=== PATIENT | female | born 1945 | race Caucasian/White ===

== ENCOUNTER 2016-09-26 09:14 | Outpatient (CLI) | payer MEDICARE, OTHER | END 2016-09-26 09:15 | disposition home or self-care (01) | DX: Z53.9 Procedure and treatment not carried out, unspecified reason (principal); R10.2 Pelvic and perineal pain; M46.1 Sacroiliitis, not elsewhere classified; E55.9 Vitamin D deficiency, unspecified; R53.81 Other malaise ==

== ENCOUNTER 2018-06-02 11:18 | Outpatient (CLI) | payer MEDICARE, OTHER ==
[2018-06-02] MEDS ORDERED: IOPAMIDOL-300 100 ML VIAL ONE (11:59)
[2018-06-02 12:12] LABS: CREATININE 0.8 mg/dL (0.4-1.0)
[2018-06-02] MEDS ORDERED: IOPAMIDOL-300 100 ML VIAL IVP ONE (14:59)
--- NOTE | 2018-06-03 08:58 | CT Report ---
Reason: CHRONIC SINUSITIS, UNSPECIFIED Procedure Date: 06/02/2018 Accession Number: [id number] / [id number] Procedure: CT - Neck Soft Tissue W/ CPT Code: FULL RESULT: EXAM: CT SOFT TISSUE NECK WITH CONTRAST. EXAM DATE: 06/02/2018 01:33 PM. HISTORY: Chronic sinusitis. COMPARISONS: SINUSES 06/02/2018. TECHNIQUE: Routine soft tissue neck CT protocol. Reconstructions: Coronal and sagittal. IV contrast: ISOVUE 300 100mL. In accordance with CT protocol optimization, one or more of the following dose reduction techniques were utilized for this exam: automated exposure control, adjustment of mA and/or KV based on patient size, or use of iterative reconstructive technique. Findings: Relevant images are indicated (image number, series number). Limited evaluation intracranial contents unremarkable, basal cisterns are patent. Orbital contents negative. Paranasal sinuses and mastoid air cells appear clear. Dentition appears intact. Suprahyoid neck: There is no suspicious mass or fluid collection. Oral cavity appears unremarkable, partly degraded by dental artifact. Asymmetrically prominently mildly enlarged right internal jugular chain nodes are present (49, 2). Partial fatty replaced right submandibular gland. Bilateral salivary glands otherwise unremarkable. Airway patent. Infrahyoid neck: No suspicious mass, fluid collection, no suspicious adenopathy. Thyroid atrophy. Larynx unremarkable, airway patent. Limited evaluation upper lung casas are clear. Advanced multilevel cervical spondylosis worse at the C5-C6, C6-C7 levels. Impressions: 1. Mildly prominent right suprahyoid internal jugular chain nodes without necrotic appearing morphology. Could represent normal variant. Soft tissue neck otherwise unremarkable with no suspicious mass, fluid collection, otherwise no suspicious adenopathy. 2. Advanced multilevel cervical spondylosis. RADIA
--- NOTE | 2018-06-03 09:35 | CT Report ---
Reason: CHRONIC SINUSITIS, UNSPECIFIED Procedure Date: 06/02/2018 Accession Number: [id number] / [id number] Procedure: CT - Sinuses CPT Code: FULL RESULT: EXAM: CT SINUS EXAM DATE: 06/02/2018 01:33 PM. HISTORY: Chronic sinusitis. COMPARISONS: None. TECHNIQUE: Routine multi-axial CT imaging performed through the sinuses. Iodinated IV contrast: None. Reconstructions: Coronal. In accordance with CT protocol optimization, one or more of the following dose reduction techniques were utilized for this exam: automated exposure control, adjustment of mA and/or KV based on patient size, or use of iterative reconstructive technique. FINDINGS: Mild bilateral maxillary sinus mucosal thickening but no obstruction or air-fluid level. Minimal bilateral ethmoid sinus and sphenoid sinus mucosal thickening without opacification. Clear hypoplastic left frontal sinus. Clear nonobstructed small right frontal sinus. Patent ostiomeatal units. Mild nasal septal bowing to the left of midline. No obstructive nasal passage soft tissue mass. Grossly clear temporal bone airspaces bilaterally. No acute fracture or focal bone destruction. IMPRESSION: Minimal to mild sphenoid, ethmoid and bilateral maxillary sinus mucosal thickening. No sinus obstruction, complete opacification or air-fluid level. RADIA
== END 2018-06-02 11:19 | disposition home or self-care (01) ==
LOC: LAB 11:18
PROVIDERS: ATTEND Internal Medicine
DX: R22.0 Localized swelling, mass and lump, head (principal); R22.1 Localized swelling, mass and lump, neck; J32.9 Chronic sinusitis, unspecified; K14.8 Other diseases of tongue; M47.812 Spondylosis without myelopathy or radiculopathy, cervical region
CPT/HCPCS: 36415; 70486; 70491; 82565; Q9967

== ENCOUNTER 2018-07-23 16:57 | Outpatient (CLI) | payer MEDICARE, OTHER ==
--- NOTE | 2018-07-24 10:59 | Ultrasound Report ---
Reason: SWELLING, MASS, LUMP IN NECK/GLOSSODYNIA Procedure Date: 07/23/2018 Accession Number: [id number] / [id number] Procedure: US - Head or Neck Soft Tissue CPT Code: FULL RESULT: EXAM: SOFT TISSUE NECK ULTRASOUND EXAM DATE: 07/23/2018 05:33 PM. CLINICAL HISTORY: Swelling, mass, lump in neck/glossodynia. COMPARISON: None. TECHNIQUE: Real time sonographic imaging of the right neck focally was performed by the supervisor public health nursing. Multiple field service representative static images were saved for review. FINDINGS: Within the right submandibular region is a 2.7 x 1.5 x 1.3 cm hypoechoic mass with irregular margins which demonstrates vascularity by color Doppler. During the examination, the patient states that a fine-needle aspiration was performed on 07/09/2018 at an outside facility with inconclusive pathology results. IMPRESSION: Suspicious submandibular mass. Recommendation: Core needle biopsy under ultrasound guidance. RADIA
== END 2018-07-23 16:58 | disposition home or self-care (01) ==
LOC: DI 16:57
PROVIDERS: ATTEND Otolaryngology
DX: R22.1 Localized swelling, mass and lump, neck (principal); K14.6 Glossodynia
CPT/HCPCS: 76536

== ENCOUNTER 2018-09-30 09:46 | Outpatient (CLI) | payer MEDICARE, OTHER ==
[2018-09-30 10:19] LABS: CREATININE 0.6 mg/dL (0.4-1.0)
[2018-09-30] MEDS ORDERED: IOVERSOL 320 100 ML VIAL IVP ONE ×2 (10:30→12:06)
--- NOTE | 2018-09-30 22:42 | CT Report ---
Reason: ADENOIDCYSTIC,RIGHT SUBMANDIB GLAND Procedure Date: 09/30/2018 Accession Number: [id number] / [id number] Procedure: CT - Chest W/ CPT Code: FULL RESULT: EXAM: CT CHEST EXAM DATE: 09/30/2018 10:58 AM. CLINICAL HISTORY: ADENOIDCYSTIC,RIGHT SUBMANDIBULAR GLAND. COMPARISONS: None. TECHNIQUE: Routine helical CT imaging was performed through the chest. IV contrast: None. Reconstructions: Coronal and sagittal. In accordance with CT protocol optimization, one or more of the following dose reduction techniques were utilized for this exam: automated exposure control, adjustment of mA and/or KV based on patient size, or use of iterative reconstructive technique. FINDINGS: Lungs/Pleura: No nodules, bronchial thickening, consolidation, or edema. Pulmonary vasculature is normal. No pericardial or pleural effusion. No pneumothorax. Mediastinum: The heart is normal in size. The aorta is unremarkable. There are no pulmonary emboli. There is a borderline enlarged lymph node in the mid mediastinum measuring 14 mm. Bones: Unremarkable. Visualized Abdomen: Gallbladder has been resected. Kidneys are normally positioned. There are 2 prominent cysts associated with the right kidney. Other: None. IMPRESSION: 1. No pulmonary nodules. 2. 1 borderline prominent lymph node in the middle mediastinum. Significance uncertain. 3. Right renal cysts. RADIA
== END 2018-09-30 09:47 | disposition home or self-care (01) ==
LOC: LAB 09:46 → DI 09:47
PROVIDERS: ATTEND Radiology Radiation Oncology
DX: C08.0 Malignant neoplasm of submandibular gland (principal); Q61.02 Congenital multiple renal cysts; R59.0 Localized enlarged lymph nodes
CPT/HCPCS: 36415; 71260; 82565; Q9967

== ENCOUNTER 2020-02-11 12:58 | Outpatient (CLI) | payer MEDICARE, OTHER ==
--- NOTE | 2020-02-12 13:59 | Ultrasound Report ---
Reason: MALIGNANT NEOPLSM OF MAJOR SALIVARY GLAND Procedure Date: 02/11/2020 Accession Number: [id number] / [id number] Procedure: US - Carotid Doppler Complete CPT Code: Final Report FULL RESULT: EXAM: BILATERAL CAROTID AND VERTEBRAL ARTERY DUPLEX DOPPLER ULTRASOUND: EXAM DATE: 02/11/2020 01:03 PM CLINICAL HISTORY: Malignant neoplasm of major salivary gland. COMPARISON: NECK SOFT TISSUE W/ 06/02/2018 1:24 PM. TECHNIQUE: Grayscale imaging, color Doppler, and duplex spectral Doppler were used to evaluate the carotid and vertebral arteries bilaterally. Static images were obtained. FINDINGS: Mild atheromatous plaques are present in the right carotid bulb extending into the internal carotid artery. Mildly elevated velocities are noted in the distal right internal carotid artery. Based on strict velocity criteria, the degree of stenosis is 50-69%. However, no significant stenosis is noted on grayscale imaging. This segment of vessel is mildly ectatic. Mild atheromatous plaques are present in the left carotid bulb extending into the internal carotid artery. Mildly elevated velocities are noted in the mid left internal carotid artery. Based on strict velocity criteria, the degree of stenosis is 50-69%. However, no significant stenosis is noted on grayscale imaging. This segment of vessel is mildly ectatic. Visualized portions of the neck soft tissues are grossly unremarkable. Normal antegrade flow is present in bilateral vertebral arteries. VELOCITIES (cm/s): Right CCA mid: PSV 77.5 cm/sec CCA dist: PSV 73.4 cm/sec ICA prox: PSV 81.5 cm/sec, EDV 16.2 cm/sec ICA mid: PSV 108.4 cm/sec, EDV 26.6 cm/sec ICA dist: PSV 130.8 cm/sec, EDV 28.2 cm/sec ECA: PSV 82.0 cm/sec Vert: PSV 53.6 cm/sec ICA/CCA: 1.1 Left CCA mid: PSV 70.9 cm/sec CCA dist: PSV 70.6 cm/sec ICA prox: PSV 87.9 cm/sec, EDV 22.1 cm/sec ICA mid: PSV 167.4 cm/sec, EDV 37.6 cm/sec ICA dist: PSV 94.5 cm/sec, EDV 25.1 cm/sec ECA: PSV 72.9 cm/sec Vert: PSV 62.5 cm/sec ICA/CCA: 2.4 ICA diameter stenosis: Right: 50-69% by velocity and <70% by NASCET criteria. Left: 50-69% by velocity and <70% by NASCET criteria. IMPRESSION: 1. Mild bilateral carotid artery plaquing. 2. Based on strict velocity criteria, elevated velocities in the distal right internal carotid artery are concerning for stenosis of 50-69%. However, the color and grayscale imaging suggest a lesser degree of stenosis. Confirmation can be performed with contrast-enhanced CT angiogram of the head and neck. 3. Based on strict velocity criteria, elevated velocities in the mid left internal carotid artery are concerning for stenosis of 50-69%. However, the color and grayscale imaging suggest a lesser degree of stenosis. Confirmation can be performed with contrast-enhanced CT angiogram of the head and neck. 4. Normal antegrade flow is present in bilateral vertebral arteries. General Recommendations: Stenosis =50% ICA - Follow-up ultrasound 6-12 months Stenosis <50% ICA - High Risk Patient with plaque - Follow-up ultrasound 1-2 years Normal Study but High Risk Patient - Follow-up ultrasound 3-5 years Management recommendations and diagnostic criteria are based on current IAC endorsed standards in Carotid Artery Stenosis: Grayscale and Doppler Ultrasound Diagnosis. Validated velocity measurements with angiographic measurements and velocity criteria are extrapolated from diameter data as defined by the Society of Radiologists in Ultrasound Consensus Conference Radiology 2003; 229;340-346. RADIA
== END 2020-02-11 12:59 | disposition home or self-care (01) ==
LOC: DI 12:58
PROVIDERS: ATTEND Nurse Practitioner Family
DX: I65.23 Occlusion and stenosis of bilateral carotid arteries (principal); C08.9 Malignant neoplasm of major salivary gland, unspecified
CPT/HCPCS: 93880

== ENCOUNTER 2020-08-24 12:07 | Outpatient (CLI) | payer MEDICARE, OTHER ==
--- NOTE | 2020-08-24 15:28 | CT Report ---
PROCEDURE: CHEST WO INDICATIONS: ADENIOD CYSTIC CARCINOMA TECHNIQUE: Noncontrast 5 mm thick sections acquired from the pulmonary apices to the posterior costophrenic angl es. 7 mm thick coronal and sagittal MIP reformats were then acquired. For radiation dose reduction, the following was used: automated exposure control, adjustment of mA and/or kV according to patient size. COMPARISON: CT chest with contrast, 10/01/2018. FINDINGS: Image quality: Excellent. Lungs and pleura: No acute air space opacities. Left basilar scars and atelectasis. No pleural effu sions or pneumothorax. Central and peripheral airways are patent and normal in caliber. Mediastinum: Heart size is normal. No pericardial effusion. There is a 1 cm precarinal lymph node, unchanged in size. Thoracic aorta and central pulmonary arteries are normal in size. Esophagus is no rmal in caliber. No hiatal hernia. Bones and chest wall: No suspicious bony lesions. No vertebral body compression fractures. No axil marcello or supraclavicular adenopathy by size criteria. The thyroid is normal in size. Abdomen: Visualized upper abdominal solid organs and bowel loops appear normal in the absence of con trast. IMPRESSION: 1. No findings to suggest pulmonary metastasis. 2. Borderline sized mediastinal lymph node appears stable, most likely reactive. Reviewed by: Paco Ford MD on 08/24/2020 3:27 PM PST Approved by: Paco Ford MD on 08/24/2020 3:27 PM PST Station ID: [id number]
== END 2020-08-24 12:08 | disposition home or self-care (01) ==
LOC: DI 12:07
PROVIDERS: ATTEND Physician Assistant
DX: C08.0 Malignant neoplasm of submandibular gland (principal)
CPT/HCPCS: 71250

== ENCOUNTER 2020-08-26 07:00 | Outpatient (CLI) | payer MEDICARE, OTHER ==
[2020-08-26 12:30] LABS: CREATININE 0.7 mg/dL (0.4-1.0)
== END 2020-08-26 23:59 | disposition home or self-care (01) ==
LOC: LAB 07:00
PROVIDERS: ATTEND Physician Assistant
DX: C08.0 Malignant neoplasm of submandibular gland (principal)
CPT/HCPCS: 36415; 82565

== ENCOUNTER 2020-09-02 12:48 | Outpatient (CLI) | payer MEDICARE, OTHER ==
[2020-09-02] MEDS ORDERED: GADOBUTROL 7.5 MMOL/7.5 ML VIAL ONE (13:02)
[2020-09-02] MEDS ORDERED: GADOBUTROL 7.5 MMOL/7.5 ML VIAL IVP ONE (13:58)
--- NOTE | 2020-09-04 12:47 | MRI Report ---
PROCEDURE: Neck Soft Tissue W/WO INDICATIONS: MALIGNANT NEOPLASM OF SUBMANDIBULAR GLAND CONTRAST: IV CONTRAST: Gadavist ml: 7 TECHNIQUE: Sagittal/axial/coronal T1 spin echo and STIR. After the administration of contrast, axial/coronal/sa gittal T1 fast spin echo with fat saturation through the neck. COMPARISON: Ultrasound neck 07/24/2018, CT soft tissue neck 06/03/2018 FINDINGS: Image quality: Excellent. Lymph nodes: No enlarged nodes are seen throughout the neck. Vessels: Visualized vasculature appears normal, with tricia flow voids and enhancement. Neck spaces: The oropharynx, nasopharynx and pharynx are unremarkable, without mucosal lesions seen. Vocal cords, false vocal cords, pyriform sinuses, epiglottis, vallecula, and tongue base all appear normal. Extramucosal spaces of the neck also appear unremarkable. Glands: The parotid appear normal. The right submandibular gland is not visualized. There is minimal surrounding STIR signal. No enhancement or discrete mass. The thyroid is normal in size. Miscellaneous: Visualized brain and orbits appear normal. Lung apices appear clear. Superficial so ft tissues appear normal. Visualized sinuses and mastoids appear clear. Bones: Marrow has normal overall signal. IMPRESSION: 1. Nonvisualization of the right submandibular gland, likely removed. Minimal surrounding increased signal without enhancement or discrete mass. This could be post surgical in nature. However, short interval followup is recommend to document stability and exclude presence of recurrent disease. Reviewed by: nIga Tavares MD on 09/04/2020 12:46 PM PST Approved by: Inga Tavares MD on 09/04/2020 12:46 PM PST Station ID: [id number]
== END 2020-09-02 12:49 | disposition home or self-care (01) ==
LOC: DI 12:48
PROVIDERS: ATTEND Physician Assistant
DX: C08.0 Malignant neoplasm of submandibular gland (principal)
CPT/HCPCS: 70543; A9585

== ENCOUNTER 2021-03-02 08:44 | Outpatient (CLI) | payer MEDICARE, OTHER ==
--- NOTE | 2021-03-02 10:09 | XRAY Report ---
PROCEDURE: Hip w/Pelvis 2-3V LT INDICATIONS: L HIP PAIN,HX CANCER TECHNIQUE: AP pelvis with lateral view(s) of the left hip(s). COMPARISON: None. FINDINGS: Bones: No fractures or dislocations. Mild symmetric appearing bilateral hip joint osteoarthritic zhang nges are seen. Left sacroiliac joint osteoarthritic changes also noted. No evidence of ankylosis or e rosion. No evidence of avascular necrosis of femoral head. Osteoarthritic changes also noted involvin g symphysis pubis. Pelvic ring appears intact. No suspicious bony lesions. Soft tissues: The visualized bowel gas pattern is normal. No suspicious soft tissue calcifications. IMPRESSION: Osteoarthritis throughout bony pelvis as above. No fracture or dislocation. No evidence o f avascular necrosis of femoral head. Reviewed by: Kimani De La Cruz MD on 03/02/2021 9:38 AM PDT Approved by: Kimani De La Cruz MD on 03/02/2021 9:38 AM PDT Station ID: [id number]
== END 2021-03-02 08:45 | disposition home or self-care (01) ==
LOC: DI 08:44
PROVIDERS: ATTEND Internal Medicine
DX: M25.552 Pain in left hip (principal); M16.0 Bilateral primary osteoarthritis of hip; M47.818 Spondylosis without myelopathy or radiculopathy, sacral and sacrococcygeal region; Z85.9 Personal history of malignant neoplasm, unspecified

== ENCOUNTER 2021-08-09 12:26 | Emergency (ER) | payer MEDICARE, OTHER ==
--- NOTE | 2021-08-09 13:11 | ED Physician Documentation ---
History of Present Illness - Stated complaint Stated Complaint: IRREGULAR HEART BEAT - Chief complaint Chief Complaint: Cardiac - History obtained from History obtained from: Patient - History of Present Illness Pain level max: 0 Pain level now: 0 - Additonal information Additional information: Patient is a 75-year-old female who presents to the emergency department with several weeks of ongoing intermittent palpitations. She states that these last for 1 to 2 seconds at a time. Nothing makes it better or worse. She states she does have a history of mitral valve prolapse, last echocardiogram was 10 years ago.No chest pain. No shortness of breath. Denies any caffeine use or stimulant use. She states that she has not been sleeping very well lately. Nothing makes it better or worse Review of Systems Ten Systems: 10 systems reviewed and negative Constitutional: denies: Fever, Chills Ears: denies: Ear pain Nose: denies: Rhinorrhea / runny nose, Congestion Cardiac: reports: Palpitations. denies: Chest pain / pressure Respiratory: denies: Cough GI: denies: Vomiting, Diarrhea Skin: denies: Rash Musculoskeletal: denies: Neck pain, Back pain PD PAST MEDICAL HISTORY - Past Medical History Past Medical History: Yes Cardiovascular: Hypertension, High cholesterol - Allergies Allergies/Adverse Reactions: Allergies Allergy/AdvReac Type Severity Reaction Status Date / Time No Known Drug Allergies Allergy Verified 08/09/21 12:36 - Living Situation Living Arrangement: reports: At home - Social History Does the pt smoke?: No Does the pt have substance abuse?: No PD ED PE NORMAL - Vitals Vital signs reviewed: Yes - General General: Alert and oriented X 3, No acute distress, Well developed/nourished - HEENT HEENT: PERRL, Moist mucous membranes - Neck Neck: Supple, no meningeal sign - Cardiac Cardiac: RRR, Strong equal pulses, Other (4/6 harsh murmur) - Respiratory Respiratory: No respiratory distress, Clear bilaterally - Abdomen Abdomen: Soft, Non tender, Non distended - Derm Derm: Warm and dry - Extremities Extremities: No edema, No calf tenderness / cord - Neuro Neuro: Alert and oriented X 3 - Psych Psych: Normal mood, Normal affect Results - Vitals Vitals: Vital Signs - 24 hr 08/09/21 08/09/21 12:30 14:50 Temperature 36.4 C L 36.5 C Heart Rate 88 69 Respiratory 16 16 Rate Blood Pressure 178/74 H 146/67 H O2 Saturation 98 100 Oxygen O2 Source Room air - EKG (time done) 1248 Rate: Rate (enter#) (79) Rhythm: NSR [place]: Normal, Anterior hemiblock (LAFB) Intervals: Normal DC QRS: Normal Ischemia: Normal ST segments - Labs Labs: Laboratory Tests 08/09/21 08/09/21 08/09/21 13:48 13:48 13:48 WBC 4.3 L RBC 4.14 L Hgb 12.8 Hct 38.7 MCV 93.5 MCH 30.9 MCHC 33.1 RDW 12.6 Plt Count 146 MPV 9.6 Neut # (Auto) 3.2 Lymph # (Auto) 0.7 L [place] # (Auto) 0.4 Eos # (Auto) 0.0 Baso # (Auto) 0.0 Absolute Nucleated RBC 0.00 Nucleated RBC % 0.0 Sodium 138 Potassium 4.1 Chloride 105 Carbon Dioxide 27 Anion Gap 6.0 BUN 11 Creatinine 0.6 Estimated GFR (MDRD) 98 Glucose 103 H Calcium 9.1 Total Bilirubin 1.6 H AST 26 ALT 34 Alkaline Phosphatase 102 Troponin I High Sens 6.7 Total Protein 6.5 L Albumin 4.0 Globulin 2.5 Albumin/Globulin Ratio 1.6 Lipase 34 - Rads (name of study) cxr Radiology: Final report received, EMP read contemporaneously, See rad report (no acute disease) PD MEDICAL DECISION MAKING - ED course Complexity details: reviewed results, re-evaluated patient, considered differential, d/w patient ED course: 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 This coincides with her symptoms. No significant lab abnormalities. No acute findings on EKG. She does have a significant murmur. Recommend that she have a repeat echocardiogram with her doctor. Patient will follow up with her doctor for further care. Patient counseled regarding signs and symptoms for which I believe and urgent re-evaluation would be necessary. Patient with good understanding of and agreement to plan and is comfortable going home at this time This document was made in part using voice recognition software. While efforts are made to proofread this document, sound alike and grammatical errors may occur. Departure - Departure Disposition: 01 Home, Self Care Clinical Impression: Premature ventricular contraction Condition: Good Instructions: ED Palpitations Follow-Up: Emely Hicks MD [Primary Care Provider] - Within 1 week Comments: You appear to have premature ventricular contractions tonight. These appear to be causing your symptoms. You should have a Holter monitor done with your doctor to determine the amount of premature ventricular contractions you have. She may want to start a medication such as a beta-monster. You also have a significant heart murmur that should have a repeat echocardiogram done as your last one was 10 years ago. Discharge Date/Time: 08/09/21 14:51
--- NOTE | 2021-08-09 13:18 | XRAY Report ---
PROCEDURE: Chest 1 View X-Ray INDICATIONS: Chest pain TECHNIQUE: One view of the chest was acquired. COMPARISON: Chest x-ray 08/24/2020 FINDINGS: Surgical changes and devices: None. Lungs and pleura: No pleural effusions or pneumothorax. Lungs are clear. Mediastinum: Mediastinal contours appear normal. Heart size is prominent. Bones and chest wall: No suspicious bony lesions. Overlying soft tissues appear unremarkable. IMPRESSION: No acute pulmonary process. Reviewed by: Inga Tavares MD on 08/09/2021 1:17 PM [facility] Approved by: Inga Tavares MD on 08/09/2021 1:17 PM [facility] Station ID: [id number]
[2021-08-09 13:54] LABS: BASOPHILS % (AUTO) 0.5 %; EOSINOPHILS % (AUTO) 0.7 %; HCT - HEMATOCRIT 38.7 % (37.0-47.0); HGB - HEMOGLOBIN 12.8 g/dL (12.0-16.0); LYMPHOCYTES # (AUTO) 0.7 10^3/uL (1.5-3.5); LYMPHOCYTES % (AUTO) 15.6 %; MEAN CORPUSCULAR HEMOGLOBIN 30.9 pg (27.0-31.0); MEAN CORPUSCULAR HGB CONC 33.1 g/dL (32.0-36.0); MEAN CORPUSCULAR VOLUME 93.5 fL (81.0-99.0); MEAN PLATELET VOLUME 9.6 fL (7.9-10.8); MONOCYTES # (AUTO) 0.4 10^3/uL (0.0-1.0); MONOCYTES % (AUTO) 8.8 %; NEUTROPHILS # (AUTO) 3.2 10^3/uL (1.5-6.6); NEUTROPHILS % (AUTO) 74.4 %; PLT - PLATELET COUNT 146 10^3/uL (130-450); RED BLOOD COUNT 4.14 10^6/uL (4.20-5.40); RED CELL DISTRIBUTION WIDTH 12.6 % (12.0-15.0); WHITE BLOOD COUNT 4.3 x10^3/uL (4.8-10.8)
[2021-08-09 14:12] LABS: ALBUMIN/GLOBULIN RATIO 1.6 (1.0-2.2); BILIRUBIN,TOTAL 1.6 mg/dL (0.2-1.0); CALCIUM 9.1 mg/dL (8.5-10.3); CREATININE 0.6 mg/dL (0.4-1.0); POTASSIUM 4.1 mmol/L (3.5-5.0); TOTAL PROTEIN 6.5 g/dL (6.7-8.2)
[2021-08-09 14:51] VITALS: BP 146/67
== END 2021-08-09 14:51 | disposition home or self-care (01) ==
LOC: ED 12:26
DX: I49.3 Ventricular premature depolarization (principal); I10 Essential (primary) hypertension
CPT/HCPCS: 36415; 80053; 83690; 84484; 85025; 93005; 99284

== ENCOUNTER 2021-08-20 10:48 | Outpatient (CLI) | payer MEDICARE, OTHER ==
--- NOTE | 2021-08-20 12:01 | CT Report ---
PROCEDURE: CHEST WO INDICATIONS: ADENOID CYSTIC CA TECHNIQUE: Noncontrast 1mm axial images were acquired from the pulmonary apices to the posterior costophrenic an gles. Axial 5 mm soft tissue kernel reconstructions were performed as well as 8 mm axial MIP and cor onal and sagittal 5 mm reformations. For radiation dose reduction, the following was used: automate d exposure control, adjustment of mA and/or kV according to patient size. COMPARISON: CT chest 08/24/2020, 09/30/2018. FINDINGS: Image quality: Excellent. Lungs and pleura: No acute air space opacities. Right upper lobe pulmonary nodule measuring 0.2 cm, (4/123), unchanged. Right lower lobe fissural nodule measuring 0.3 cm, (4/217), unchanged. No pleura l effusions or pneumothorax. Central and peripheral airways are patent and normal in caliber. Mediastinum: Heart size is at the upper limits of normal. No pericardial effusion. No mediastinal adenopathy by size criteria. Right precarinal node measuring 1 cm, (3/28), unchanged, and more remote ly 1.2 cm in 2019. Thoracic aorta and central pulmonary arteries are normal in size. Esophagus is no rmal in caliber. No hiatal hernia. Bones and chest wall: No suspicious bony lesions. No vertebral body compression fractures. Multilev el degenerative change. No axillary or supraclavicular adenopathy by size criteria. The thyroid is n ormal in size and there are no incidental findings. Clips at the right submental neck. Abdomen: Cholecystectomy clips. Visualized upper abdominal solid organs and bowel loops appear normal in the absence of contrast. IMPRESSION: No convincing metastatic disease. A few tiny pulmonary nodules which are unchanged. Prominent precarinal node is decreased in size comp ared to 2019. Reviewed by: Mohan Hernandez MD on 08/20/2021 12:00 PM PST Approved by: Mohan Hernandez MD on 08/20/2021 12:00 PM PST Station ID: [id number]
== END 2021-08-20 10:49 | disposition home or self-care (01) ==
LOC: DI 10:48
PROVIDERS: ATTEND Internal Medicine
DX: R91.8 Other nonspecific abnormal finding of lung field (principal); C08.0 Malignant neoplasm of submandibular gland; Z79.899 Other long term (current) drug therapy

== ENCOUNTER 2021-08-21 12:44 | Outpatient (CLI) | payer MEDICARE, OTHER ==
[2021-08-21] MEDS ORDERED: GADOBUTROL 7.5 MMOL/7.5 ML VIAL ONE (12:52)
[2021-08-21] MEDS ORDERED: GADOBUTROL 7.5 MMOL/7.5 ML VIAL IVP ONE (16:29)
--- NOTE | 2021-08-21 16:36 | MRI Report ---
PROCEDURE: Neck Soft Tissue W/WO INDICATIONS: ADENOID CYSTIC CARCINOMA CONTRAST: IV CONTRAST: Gadavist ml: 7.5 TECHNIQUE: Sagittal/axial/coronal T1 spin echo and STIR. After the administration of contrast, axial/coronal/sa gittal T1 fast spin echo with fat saturation through the neck. COMPARISON: 09/02/2020. Correlation is also made with prior soft tissue neck CT, 06/02/2018 FINDINGS: Image quality: Motion artifact is noted. Susceptibility artifact from the right oral cavity can b e seen. Lymph nodes: No enlarged nodes are seen throughout the neck. Vessels: Visualized vasculature appears normal, with tricia flow voids and enhancement. Neck spaces: The oropharynx, nasopharynx and pharynx are unremarkable, without mucosal lesions seen. Vocal cords, false vocal cords, pyriform sinuses, epiglottis, vallecula, and tongue base all appear normal. Extramucosal spaces of the neck also appear unremarkable. Glands: There has been resection of the right subarticular gland. Within the resection bed, no margarita s or abnormal enhancement can be seen. The left seminal gland is unremarkable. The parotid glands appear normal. The thyroid is normal in size and there are no incidental findings . Miscellaneous: Visualized brain and orbits appear normal. Lung apices appear clear. Superficial so ft tissues appear normal. Visualized sinuses and mastoids appear clear. Bones: Marrow has normal overall signal. At least moderate cervical spine degenerative change can b e seen, which is worst at the C5-C6 level. IMPRESSION: Prior resection of the right submandibular gland, without regional masses seen. No enlarged lymph nodes are seen. Incidental note is made of: Focal C5-C6 degenerative change Reviewed by: Moe Corrigan MD on 08/21/2021 3:35 PM [facility] Approved by: Moe Corrigan MD on 08/21/2021 3:35 PM [facility] Station ID: [id number]
== END 2021-08-21 12:45 | disposition home or self-care (01) ==
LOC: DI 12:44
PROVIDERS: ATTEND Internal Medicine
DX: C08.0 Malignant neoplasm of submandibular gland (principal)
CPT/HCPCS: 70543; A9585

== ENCOUNTER 2021-09-03 10:17 | Outpatient (CLI) | payer MEDICARE, OTHER ==
[2021-09-03] MEDS ORDERED: REGADENOSON 0.4 MG/5 ML SYRINGE IVP ONE ×2 (12:01→13:49)
--- NOTE | 2021-09-03 15:11 | Nuclear Medicine Report ---
PROCEDURE: Rest and pharmacological stress myocardial perfusion SPECT with gated imaging and ejection fraction INDICATIONS: LEXISCAN - PVC'S MURMUR, CHEST DISCOMFORT RADIOPHARMACEUTICAL: 13.0 mCi Tc-99m Myoview IV at rest and 33.4 mCi Tc-99m Myoview IV at peak stres s. Vmi-[id number]-[id number] was performed. TECHNIQUE: Radiopharmaceutical was injected at peak stress test, and also at rest. SPECT images wer e obtained. SPECT myocardial perfusion images were displayed in short axis, horizontal long axis, an d vertical long axis views. Gated images were reviewed using Auto[employer] software. COMPARISON: None available. FINDINGS: Raw data: There is prominent bowel activity near inferior wall of the left ventricle, interfering wi th visualization of the inferior wall. There is good myocardial labeling by radiotracer. No signific ant motion artifacts. Ylcz-nx-szsbs ratio is 0.38 (normal is less than 0.46 for tetrafosmin tracer). Left ventricle function: Gated images demonstrate normal left ventricle wall thickening. No segment al wall motion abnormality. No transient ischemic dilation; TID is 0.96 (normal less than 1.30). Th e left ventricle resting end-diastolic volume is 133 mL. Left ventricle stress ejection fraction is greater than 70%; normal values are above 45%. Myocardial perfusion: Decrease activity in the anterior wall is likely secondary to breast attenuati on artifact. There is otherwise normal distribution of activity in the left and right ventricular ghassan cardium. No fixed or reversible perfusion defects. IMPRESSION: 1. Probably normal myocardial perfusion scan. There is prominent breast attenuation artifact. No perf usion defect to suggest myocardial ischemia or infarct. 2. Normal left ventricular volume and systolic function. 3. Please correlate with the separate stress EKG result. PQRS ATTESTATIONS: Measure 322 - Is this imaging test primarily performed on a low-risk surgery patient for preoperative evaluation within 30 days preceding their low-risk non-cardiac surgery? Low-risk surgery is defined as cardiac or myocardial infarction less than 1%, including (but not limited to) endoscopic pr ocedures, superficial procedures, cataract surgery, and excisional breast surgery: Answer: No Measure 323 - Is this imaging test performed primarily for the monitoring of an asymptomatic patient who had percutaneous coronary intervention on the visit date or within 2 years of the visit date? An swer: No Measure 324 - Is this imaging test performed primarily for the initial detection and risk assessment on an asymptomatic, low coronary heart disease patient? Low CHD risk definition = clinicians should consider the maximum number of available patient factors used to estimate risk based on [place] (A TP III criteria), typically age, gender, diabetes, smoking status, and use of blood pressure medicati on, and integrate age appropriate estimates for missing elements, such as LDL or standard blood press ure. Answer: No Reviewed by: Paco Ford MD on 09/03/2021 3:10 PM PST Approved by: Paco Ford MD on 09/03/2021 3:10 PM PST Station ID: [id number]
--- NOTE | 2021-09-04 19:29 | CARDIAC PROCEDURE NOTE ---
Stress Test Report Summary: Lexiscan done 09/03/21 HR response: 69 to 114 BP response 140/75 to 154/81 Symptoms: no chest pain ST segment response: no significant ST segment elevation or depression Arrhythmias: occasional PVc's seen Impression: no symptoms, no significant EKG changes seen Conclusion: await imaging results
== END 2021-09-03 10:18 | disposition home or self-care (01) ==
LOC: DI 10:17
PROVIDERS: ATTEND Internal Medicine
DX: R01.1 Cardiac murmur, unspecified (principal); R07.89 Other chest pain
CPT/HCPCS: 78452; 93017; A9500; J2785

== ENCOUNTER 2021-11-09 10:21 | Outpatient (CLI) | payer MEDICARE, OTHER | END 2021-11-09 10:22 | disposition home or self-care (01) | LOC: DI 10:21 | PROVIDERS: ATTEND Internal Medicine | DX: R01.1 Cardiac murmur, unspecified (principal); R07.89 Other chest pain; I34.0 Nonrheumatic mitral (valve) insufficiency | CPT/HCPCS: 93306 ==

== ENCOUNTER 2021-11-14 07:23 | Outpatient (CLI) | payer MEDICARE, OTHER ==
[2021-11-14 07:34] LABS: BASOPHILS # (AUTO) 0.1 10^3/uL (0.0-0.1); EOSINOPHILS # (AUTO) 0.1 10^3/uL (0.0-0.7); EOSINOPHILS % (AUTO) 2.5 %; HCT - HEMATOCRIT 41.9 % (37.0-47.0); HGB - HEMOGLOBIN 13.8 g/dL (12.0-16.0); LYMPHOCYTES % (AUTO) 20.8 %; MEAN CORPUSCULAR HEMOGLOBIN 30.9 pg (27.0-31.0); MEAN CORPUSCULAR HGB CONC 32.9 g/dL (32.0-36.0); MEAN CORPUSCULAR VOLUME 93.7 fL (81.0-99.0); MEAN PLATELET VOLUME 9.7 fL (7.9-10.8); MONOCYTES # (AUTO) 0.6 10^3/uL (0.0-1.0); MONOCYTES % (AUTO) 12.2 %; NEUTROPHILS % (AUTO) 63.3 %; PLT - PLATELET COUNT 179 10^3/uL (130-450); RED BLOOD COUNT 4.47 10^6/uL (4.20-5.40); RED CELL DISTRIBUTION WIDTH 12.5 % (12.0-15.0); WHITE BLOOD COUNT 4.8 x10^3/uL (4.8-10.8)
[2021-11-14 07:53] LABS: ALBUMIN 4.1 g/dL (3.2-5.5); ALBUMIN/GLOBULIN RATIO 1.5 (1.0-2.2); ALKALINE PHOSPHATASE 95 IU/L (42-121); ALT ALANINE AMINOTRANSFERASE 27 IU/L (10-60); AST ASPARTATE AMINOTRANSFERASE 23 IU/L (10-42); BUN - BLOOD UREA NITROGEN 16 mg/dL (6-20); CALCIUM 9.1 mg/dL (8.5-10.3); CARBON DIOXIDE - CO2 28 mmol/L (21-32); CHLORIDE 102 mmol/L (101-111); CHOL/HDL RATIO 3.4 (<4.4); CHOLESTEROL 249 mg/dL; CREATININE 0.6 mg/dL (0.4-1.0); GFR - MDRD 97 (>89); GLUCOSE 99 mg/dL (70-100); HDL CHOLESTEROL 74 mg/dL; LDL CHOLESTEROL,CALCULATED 157 mg/dL; LDL/HDL RATIO 2.1 (<4.4); POTASSIUM 3.9 mmol/L (3.5-5.0); SODIUM 138 mmol/L (135-145); TOTAL PROTEIN 6.8 g/dL (6.7-8.2); TRIGLYCERIDES 92 mg/dL; VLDL CHOLESTEROL 18 mg/dL
== END 2021-11-14 07:24 | disposition home or self-care (01) ==
LOC: LAB 07:23
PROVIDERS: ATTEND Internal Medicine
DX: I10 Essential (primary) hypertension (principal); Z13.6 Encounter for screening for cardiovascular disorders; Z79.899 Other long term (current) drug therapy; G47.00 Insomnia, unspecified; I34.0 Nonrheumatic mitral (valve) insufficiency; E78.5 Hyperlipidemia, unspecified; L08.9 Local infection of the skin and subcutaneous tissue, unspecified
CPT/HCPCS: 36415; 80053; 80061; 83721; 84443; 85025

== ENCOUNTER 2022-03-27 09:15 | Outpatient (CLI) | payer MEDICARE, OTHER ==
[2022-03-27 09:39] LABS: CALCIUM 9.2 mg/dL (8.5-10.3); CREATININE 0.7 mg/dL (0.4-1.0); POTASSIUM 3.9 mmol/L (3.5-5.0)
== END 2022-03-27 09:16 | disposition home or self-care (01) ==
LOC: LAB 09:15
PROVIDERS: ATTEND Internal Medicine
DX: I10 Essential (primary) hypertension (principal)
CPT/HCPCS: 36415; 80048

== ENCOUNTER 2022-10-14 09:17 | Outpatient (CLI) | payer MEDICARE, OTHER ==
[2022-10-14 09:41] LABS: CALCIUM 8.9 mg/dL (8.5-10.3); CREATININE 0.6 mg/dL (0.4-1.0); POTASSIUM 3.8 mmol/L (3.5-5.0)
== END 2022-10-14 09:18 | disposition home or self-care (01) ==
LOC: LAB 09:17
PROVIDERS: ATTEND Internal Medicine
DX: Z79.899 Other long term (current) drug therapy (principal)
CPT/HCPCS: 36415; 80048

== ENCOUNTER 2022-10-15 11:44 | Outpatient (CLI) | payer MEDICARE, OTHER ==
--- NOTE | 2022-10-15 16:57 | Ultrasound Report ---
PROCEDURE: Head or Neck Soft Tissue INDICATIONS: CYST OF THYROID TECHNIQUE: Real-time scanning was performed of the thyroid gland, with image documentation. COMPARISON: MRI of neck soft tissue dated 08/19/2022 FINDINGS: Right: Thyroid lobe measures 4.7 x 1.4 x 1.6 cm, and is homogeneous in echotexture. Left: Thyroid lobe measures 3.4 x 1.3 x 1.3 cm, and is homogenous in echotexture. Isthmus: 2.3 mm thick. Nodule number: One Location: Mid pole left thyroid lobe Size: 0.5 x 0.3 x 0.4 cm. Composition: Solid Echogenicity: Isoechoic Shape: wider than tall. Margins: Lobulated Echogenic foci: None Total points: 4 ACR TI-RADS category: Moderately suspicious. Nodule number: Two Location: Left isthmus Size: 0.8 x 0.7 x 0.7 cm. Composition: Cystic Echogenicity: Anechoic Shape: wider than tall. Margins: Smooth Echogenic foci: None Total points: 0 ACR TI-RADS category: Benign. IMPRESSION: 1. Small moderately suspicious nodule in mid pole left thyroid lobe measures 5 x 3 x 4 mm in size. No specific follow-up is indicated at this time. 2. Benign cyst is seen in left isthmus. ACR TI-RADS definitions and recommendations: TI-RADS 1 (benign): 0 points. FNA not needed. TI-RADS 2 (not suspicious): 2 points. FNA not needed. TI-RADS 3 (mildly suspicious): 3 points. "FNA if 2.5 cm or larger, follow up if 1.5 cm or larger (at 1, 3, and 5 years). TI-RADS 4 (moderately suspicious): 4-6 points. "FNA if 1.5 cm or larger, follow up if 1 cm or larger (at 1, 2, 3, and 5 years). TI-RADS 5 (highly suspicious): 7 points or more. "FNA if 1 cm or larger, follow up if 0.5 cm or larger (every year for 5 years). Reviewed by: Kimani De La Cruz MD on 10/15/2022 4:56 PM PST Approved by: Kimani De La Cruz MD on 10/15/2022 4:56 PM PST Station ID: [id number]
== END 2022-10-15 11:45 | disposition home or self-care (01) ==
LOC: DI 11:44
PROVIDERS: ATTEND Internal Medicine
DX: E04.2 Nontoxic multinodular goiter (principal)

== ENCOUNTER 2023-01-01 13:19 | Outpatient (CLI) | payer MEDICARE, OTHER ==
--- NOTE | 2023-01-01 15:35 | Ultrasound Report ---
PROCEDURE: Carotid Doppler Complete INDICATIONS: SALIVARY GLAND CA TECHNIQUE: Color and pulse Doppler interrogation was performed of both carotid systems, with image documentation and velocity measurements. COMPARISON: Ultrasound 02/11/2020 FINDINGS: Right side: Brachial blood pressure: 137/49 mm Hg. Common carotid artery peak systolic velocity: 60.55 cm/sec. Internal carotid artery peak systolic velocity: 100.61 cm/sec. Internal carotid artery end diastolic velocity: 35.7 cm/sec. External carotid artery peak systolic velocity: 127.23 cm/sec. ICA/CCA peak systolic ratio: 1 . Ramon scale imaging description: Mild plaque of the bulb. Percent internal carotid artery stenosis: Less than 50% stenosis. Vertebral artery: Flow direction is antegrade. Left side: Brachial blood pressure: 138/54 mm Hg. Common carotid artery peak systolic velocity: 55.4 cm/sec. Internal carotid artery peak systolic velocity: 149.3 cm/sec. Internal carotid artery end diastolic velocity: 44.14 cm/sec. External carotid artery peak systolic velocity: 96.07 cm/sec. ICA/CCA peak systolic ratio: 1 . Ramon scale imaging description: Mild plaque at the bulb. Percent internal carotid artery stenosis: 50-69% . Vertebral artery: Flow direction is antegrade. IMPRESSION: 1. In the right internal carotid artery, there is less than 50 percent stenosis based on peak systoli c velocity criteria. This was previously 50-69%. 2. In the left internal carotid artery, there is 50-69 percent stenosis based on peak systolic veloci ty criteria. This is unchanged from prior. 3. Antegrade blood flow within the right vertebral artery. 4. Antegrade blood flow within the left vertebral artery. The estimate of stenosis included in the report of the imaging study was calculated using the NASCET method Reviewed by: Sav Funk on 01/01/2023 3:33 PM PDT Approved by: Sav Funk on 01/01/2023 3:33 PM PDT Station ID: [id number]
== END 2023-01-01 13:20 | disposition home or self-care (01) ==
LOC: DI 13:19
PROVIDERS: ATTEND Internal Medicine
DX: C08.9 Malignant neoplasm of major salivary gland, unspecified (principal); I65.23 Occlusion and stenosis of bilateral carotid arteries
CPT/HCPCS: 93880

== ENCOUNTER 2023-01-23 11:47 | Outpatient (CLI) | payer MEDICARE, OTHER ==
--- NOTE | 2023-01-23 17:02 | Ultrasound Report ---
PROCEDURE: Ext Limited Non Vascular INDICATIONS: SUBCUTANEOUS MASS LEFT INDEX FINGER TECHNIQUE: Real-time scanning was performed of the left index finger, with image documentation. COMPARISON: None. FINDINGS: There are 2 small hypoechoic structures over the area of clinical concern measuring approx imately 0.4 cm and 0.5 cm in size. These are noted in close proximity to each other over the dorsal a spect of the index finger. No internal vascularity. No definite communication with the underlying cristopher nt space. IMPRESSION: Nonspecific subcentimeter hypoechoic lesions in the left index finger possibly represent ing cysts. Recommend radiographic evaluation of the left hand for further evaluation. Consider subseq uent evaluation with contrast-enhanced MRI if there is persistent clinical concern. Reviewed by: Jhon Nur MD on 01/23/2023 5:01 PM PDT Approved by: Jhon Nur MD on 01/23/2023 5:01 PM PDT Station ID: [id number]
== END 2023-01-23 11:48 | disposition home or self-care (01) ==
LOC: DI 11:47
PROVIDERS: ATTEND Internal Medicine
DX: R22.32 Localized swelling, mass and lump, left upper limb (principal)

== ENCOUNTER 2023-10-13 12:37 | Outpatient (CLI) | payer MEDICARE, OTHER ==
--- NOTE | 2023-10-14 10:02 | Ultrasound Report ---
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 Follow-up thyroid nodules. TECHNIQUE: Real-time scanning was performed of the thyroid gland, with image documentation. COMPARISON: Ultrasound thyroid dated 04/08/2023 FINDINGS: Right: Thyroid lobe measures 4.2 x 1.4 x 1.4 cm, and is homogeneous in echotexture. Left: Thyroid lobe measures 3.4 x 1.0 x 1.4 cm, and is homogenous in echotexture. Isthmus: 0.2 cm thick. Nodule number: One Location: Midportion, left thyroid Size: 0.4 x 0.2 x 0.4 cm. (Previous is 0.4 x 0.7 x 0.3 cm) Composition: Solid/Spongiform. Echogenicity: Hypoechoic. Shape: wider than tall (0 points). Margins: Smooth (0 points). Echogenic foci: None (0 points). Total points: 4 ACR TI-RADS category: Moderately suspicious (4-6 points). Nodule number: Two Location: Isthmus, left thyroid inferiorly Size: 0.3 x 0.2 x 0.3 cm. (Previous 0.4 x 0.4 x 0.3) Composition: Predominantly cystic. Echogenicity: Hypoechoic. Shape: wider than tall (0 points). Margins: Smooth (0 points). Echogenic foci: None. Total points: 4 ACR TI-RADS category: Moderately suspicious (4-6 points). IMPRESSION: Small thyroid nodules, did not increase in size. None meet TI-RADS criteria for FNA recommendation or continued imaging follow-up. ACR TI-RADS definitions and recommendations: TI-RADS 1 (benign): 0 points. FNA not needed. TI-RADS 2 (not suspicious): 2 points. FNA not needed. TI-RADS 3 (mildly suspicious): 3 points. "FNA if 2.5 cm or larger, follow up if 1.5 cm or larger (at 1, 3, and 5 years). TI-RADS 4 (moderately suspicious): 4-6 points. "FNA if 1.5 cm or larger, follow up if 1 cm or larger (at 1, 2, 3, and 5 years). TI-RADS 5 (highly suspicious): 7 points or more. "FNA if 1 cm or larger, follow up if 0.5 cm or larger (every year for 5 years). Reviewed by: Ed Muller MD on 10/14/2023 10:00 AM [facility] Approved by: Ed Muller MD on 10/14/2023 10:00 AM [facility] Station ID: [id number]
== END 2023-10-13 12:38 | disposition home or self-care (01) ==
LOC: DI 12:37
PROVIDERS: ATTEND Physician Assistant
DX: Z92.3 Personal history of irradiation (principal); Z85.89 Personal history of malignant neoplasm of other organs and systems; E04.2 Nontoxic multinodular goiter

== ENCOUNTER 2023-12-06 09:07 | Outpatient (CLI) | payer MEDICARE, OTHER ==
[2023-12-06 09:28] LABS: BASOPHILS # (AUTO) 0.1 10^3/uL (0.0-0.1); BASOPHILS % (AUTO) 1.1 %; EOSINOPHILS # (AUTO) 0.1 10^3/uL (0.0-0.7); EOSINOPHILS % (AUTO) 2.1 %; HCT - HEMATOCRIT 42.4 % (37.0-47.0); HGB - HEMOGLOBIN 13.5 g/dL (12.0-16.0); LYMPHOCYTES # (AUTO) 0.9 10^3/uL (1.5-3.5); LYMPHOCYTES % (AUTO) 19.9 %; MEAN CORPUSCULAR HEMOGLOBIN 30.4 pg (27.0-31.0); MEAN CORPUSCULAR HGB CONC 31.8 g/dL (32.0-36.0); MEAN CORPUSCULAR VOLUME 95.5 fL (81.0-99.0); MEAN PLATELET VOLUME 10.9 fL (7.9-10.8); MONOCYTES # (AUTO) 0.5 10^3/uL (0.0-1.0); MONOCYTES % (AUTO) 10.7 %; NEUTROPHILS # (AUTO) 2.9 10^3/uL (1.5-6.6); PLT - PLATELET COUNT 145 10^3/uL (130-450); RED BLOOD COUNT 4.44 10^6/uL (4.20-5.40); WHITE BLOOD COUNT 4.4 x10^3/uL (4.8-10.8)
[2023-12-06 09:48] LABS: ALBUMIN 4.1 g/dL (3.2-5.5); ALBUMIN/GLOBULIN RATIO 1.7 (1.0-2.2); ALKALINE PHOSPHATASE 94 IU/L (42-121); ALT ALANINE AMINOTRANSFERASE 24 IU/L (10-60); AST ASPARTATE AMINOTRANSFERASE 20 IU/L (10-42); BILIRUBIN,TOTAL 0.9 mg/dL (0.2-1.0); BUN - BLOOD UREA NITROGEN 13 mg/dL (6-20); CALCIUM 9.5 mg/dL (8.5-10.3); CARBON DIOXIDE - CO2 30 mmol/L (21-32); CHLORIDE 105 mmol/L (101-111); CHOL/HDL RATIO 3.1 (<4.4); CHOLESTEROL 197 mg/dL; CREATININE 0.7 mg/dL (0.6-1.3); CRP HIGH SENSITIVITY 0.94 mg/L; GFR - MDRD 81 (>89); GLUCOSE 104 mg/dL (74-104); HDL CHOLESTEROL 63 mg/dL; LDL CHOLESTEROL,CALCULATED 112 mg/dL; LDL/HDL RATIO 1.8 (<4.4); POTASSIUM 4.2 mmol/L (3.5-4.5); SODIUM 139 mmol/L (135-145); TOTAL PROTEIN 6.5 g/dL (6.4-8.9); TRIGLYCERIDES 108 mg/dL (48-352); VLDL CHOLESTEROL 22 mg/dL
[2023-12-06 10:00] LABS: THYROID STIMULATING HORMONE 2.61 uIU/mL (0.34-5.60)
== END 2023-12-06 09:08 | disposition home or self-care (01) ==
LOC: LAB 09:07
PROVIDERS: ATTEND Internal Medicine
DX: Z00.00 Encounter for general adult medical examination without abnormal findings (principal); G45.3 Amaurosis fugax; R60.9 Edema, unspecified; I34.0 Nonrheumatic mitral (valve) insufficiency; E04.2 Nontoxic multinodular goiter; R00.2 Palpitations; Z79.899 Other long term (current) drug therapy
CPT/HCPCS: 36415; 80053; 80061; 83721; 83880; 84439; 84443; 84481; 85025; 85651; 86141

== ENCOUNTER 2024-01-09 09:19 | Outpatient (CLI) | payer MEDICARE, OTHER | END 2024-01-09 09:20 | disposition home or self-care (01) | LOC: DI 09:19 | PROVIDERS: ATTEND Internal Medicine | DX: G45.3 Amaurosis fugax (principal); R60.9 Edema, unspecified; I08.0 Rheumatic disorders of both mitral and aortic valves; I77.810 Thoracic aortic ectasia; I87.8 Other specified disorders of veins | CPT/HCPCS: 93307 ==

== ENCOUNTER 2024-02-26 08:40 | Outpatient (CLI) | payer MEDICARE, OTHER ==
[2024-02-26 09:08] LABS: ALBUMIN 4.1 g/dL (3.2-5.5); BILIRUBIN,DIRECT 0.2 mg/dL (0.03-0.18); BILIRUBIN,TOTAL 1.2 mg/dL (0.2-1.0); CALCIUM 9.5 mg/dL (8.5-10.3); CREATININE 0.8 mg/dL (0.6-1.3); TOTAL PROTEIN 6.4 g/dL (6.4-8.9)
== END 2024-02-26 08:41 | disposition home or self-care (01) ==
LOC: LAB 08:40
PROVIDERS: ATTEND Internal Medicine Cardiovascular Disease
DX: I47.10 Supraventricular tachycardia, unspecified (principal); E78.00 Pure hypercholesterolemia, unspecified
CPT/HCPCS: 36415; 80048; 80076